=== PATIENT | male | born 1990 | race Caucasian/White ===

== ENCOUNTER 2016-11-03 14:44 | Emergency (ER) | payer BC, MEDICAID, OTHER ==
[~2016-11-03] VITALS: Ht 165.1 cm; Wt 90.0 kg
[2016-11-03 14:47] VITALS: Ht 165.1 cm; Wt 90.0 kg
[2016-11-03] MEDS ORDERED: DIPHTH/TET/ACEL PERTUSS (ADULT) 0.5 ML VIAL IM* ONE (16:30)
[2016-11-03] MEDS ORDERED: AMOX1TAB10 PO (16:31)
--- NOTE | 2016-11-03 16:37 | ERD ---
ER Documentation Chief Complaint Date/Time DATE: 11/03/16 TIME: 16:33 Chief Complaint LEFT THUMB DOG SCRATCH HPI This is a 26-year-old male presents to the ER for a bite to his left thumb which occurred yesterday. Patient states that the neighbors dog bit him. Patient was able to control bleeding and he washed area with hydrogen peroxide and alcohol. Patient states that this morning his thumb was hurting. Patient states that the dog did have his vaccines, however he does not trust that his neighbors are telling him the truth. Patient has not had any fevers or chills. He denies any discharge or swelling of the thumb. He denies any numbness or tingling of his thumb. Patient does not have a recent Tdap shot. ROS 12 point review of systems was done, all negative except per HPI. Medications Home Meds Active Scripts Amoxicillin/Potassium Clav (Amox-Clav 875-125 mg Tablet) 875-125 mg Tab, 1 TAB PO BID for 7 Days, #14 TAB Prov:ROSALINDA SCHREIBER Lucien 11/03/16 PMhx/Soc Medical and Surgical Hx: pt denies Medical Hx, pt denies Surgical Hx Hx Alcohol Use: Yes (on ocasion) Hx Substance Use: No Hx Tobacco Use: Yes Smoking Status: Light tobacco smoker Physical Exam Vitals Vital Signs Date Time Temp Pulse Resp B/P Pulse Ox O2 Delivery O2 Flow Rate FiO2 11/03/16 14:47 98.2 80 18 130/84 99 Physical Exam GENERAL: The patient is well developed and appropriate for usual state of health , in no apparent distress. HEENT: Atraumatic. CHEST: Clear to auscultation bilaterally. There are no rales, wheezes or rhonchi. HEART: Regular rate and rhythm. No murmurs, clicks, rubs or gallops. EXTREMITIES: There is an area of redness to the distal left thumb that is tender to palpation, no discharge is seen. Patient does not have any tenderness along the rest of the family to the other fingers. FDS and FDP are intact. Radial and ulnar nerves are intact. Patient has full range of motion of his wrist with no pain. NEURO: Alert and oriented. SKIN: The skin is warm and dry. Results 24 hrs Current Medications Medications (Trade) Dose Ordered Sig/Felipe Route PRN Reason Start Time Stop Time Status Last Admin Dose Admin Diphtheria/ Tetanus/Acell Pertussis (Adacel) 0.5 ml ONCE ONCE IM* 11/03/16 16:30 11/03/16 16:31 DC 11/03/16 16:29 Procedures/MDM This is a 26-year-old male presents to the ER with left thumb finger pain after a dog bite. At this time area does not appear infected, however he will be sent home with Augmentin prophylactically for this dog bite. She was given a tetanus shot in the ER without any complications. At this time suspicion for cellulitis, abscess, deep space infection, flexor tenosynovitis, osteomyelitis is low. Patient has full range of motion of his thumb is neurovascularly intact. He is afebrile and well-appearing. He is stable for outpatient follow- up. I offered patient pain medication however he states that the pain was not too bad. Patient is to follow-up with his primary care doctor within 1-2 days return to ER sooner if symptoms worsen. My medical decision making shared with the patient he understands and agrees with plan. Departure Diagnosis: Primary Impression: Dog bite Condition: Stable Patient Instructions: Dog Bite Additional Instructions: Call your primary care doctor TOMORROW for an appointment during the next 1-2 days.See the doctor sooner or return here if your condition worsens before your appointment time. ROSALINDA SCHREIBER Nov 03, 2016 16:37
== END 2016-11-03 16:50 | disposition home or self-care (01) ==
LOC: FTE 14:44
DX: S61.052A Open bite of left thumb without damage to nail, initial encounter (principal); F17.210 Nicotine dependence, cigarettes, uncomplicated; W54.0XXA Bitten by dog, initial encounter; Y92.9 Unspecified place or not applicable; Z23 Encounter for immunization
CPT/HCPCS: 90471; 90715; Z7502